=== PATIENT | female | born 1945 | race Caucasian/White ===

== ENCOUNTER → 2024-04-29 07:27 | Outpatient (REF) | payer MEDICARE, SELFPAY | LOC: HWRAD 07:27 | PROVIDERS: ATTENDING PHYSICIAN Orthopaedic Surgery Hand Surgery; FAMILY PHYSICIAN Internal Medicine | DX: M25.511 Pain in right shoulder (principal) | CPT/HCPCS: 73200 ==

== ENCOUNTER → 2024-06-02 08:53 | Outpatient (REF) | payer MEDICARE, SELFPAY | LOC: WDC 08:53 | PROVIDERS: ATTENDING PHYSICIAN Obstetrics & Gynecology; FAMILY PHYSICIAN Internal Medicine | DX: Z12.31 Encounter for screening mammogram for malignant neoplasm of breast (principal) | CPT/HCPCS: 77063; 77067 ==

== ENCOUNTER → 2024-06-03 09:40 | Outpatient (REF) | payer MEDICARE, SELFPAY | LOC: RAD 09:40 | PROVIDERS: ATTENDING PHYSICIAN Internal Medicine | DX: Z78.0 Asymptomatic menopausal state (principal) | CPT/HCPCS: 77080 ==

== ENCOUNTER 2024-06-09 14:48 | Emergency (ER) | payer MEDICARE, SELFPAY ==
[2024-06-09 14:50] VITALS: BP 175/111
[2024-06-09] MEDS: MOTRIN 400 MG PO (16:48)
[2024-06-09] MEDS: LIDOCAINE 4% PATCH 1 PATCH TOPICAL (16:49)
--- NOTE | 2024-06-09 17:15 | ED.GENMED ---
History of Present Illness
<Lovely Grover PA-C - Last Filed: 06/11/24 22:12>
General
Chief Complaint: Musculo-Skeletal Complaint
Source: patient
Exam Limitations: none
Time Seen by Provider: 06/09/24 16:30
Nursing documentation reviewed up to this point in time: agreed with
History of Present Illness
History of Present Illness:
Patient is a 78-year-old female with history hyperlipidemia presenting for evaluation of left rib pain. Patient states that this started about 4 days ago she was reaching over into the washing machine to grab a pair of socks. She felt a sharp pain
in her left lateral ribs. Pain is dissipated somewhat since the initial injury although persist. Patient reports a pain in her left lateral chest definitely worse with certain movements. Patient states pain is worse when she goes to get out of bed
in the morning. Patient denies any exertional or pleuritic component to pain. Patient has not noticed any bruising. Patient specifically denies any chest pain, shortness of breath, difficulty breathing, abdominal pain. Patient denies any
headache, nausea/vomiting, urinary symptoms. Patient denies any fever, chills, cough.
Patient is a taking Tylenol and icing at home with little improvement.
Review of Systems
<Lovely Grover PA-C - Last Filed: 06/11/24 22:12>
Review of Systems
Allergies reviewed?: Yes
All Other Systems: ROS reviewed and negative except as documented in HPI and ROS
Phy Exam
<Lovely Grover PA-C - Last Filed: 06/11/24 22:12>
Physical Exam
Physical Exam:
Vitals: Patient's vital signs are stable. Afebrile
General: Patient is well appearing, no acute distress. Nontoxic-appearing
Skin: Warm and dry, no rashes or lesions
Head: Normocephalic, atraumatic
Eyes: Sclera nonicteric. EOMs intact. No nystagmus.
Throat: Protecting airway
Neck: Normal ROM, no cervical spine tenderness, no meningismus. Trachea midline
Cardiac: Regular rate and rhythm, no murmurs. Point tenderness to left lateral chest wall just beneath left breast. No overlying erythema, ecchymoses, or rash. No crepitus or obvious deformity.
Pulm: Clear breath sounds bilaterally. Normal respiratory effort. No respiratory distress. Oxygen saturation 95 on room air.
Abdomen: Abdomen soft. No abdominal tenderness.
Extremities: No evidence of cyanosis or edema. Great distal pulse
Neuro: AAOx3. CN II-XII intact. No focal neurologic deficits. Strength 5 out of 5 in upper and lower extremities. Steady gait. Speech fluid. Sensation fully intact
Psychiatric: Normal affect.
Course
<Lovely Grover PA-C - Last Filed: 06/11/24 22:12>
Orders/Labs/Results
Orders:
Orders
06/09/24 16:45
Ibuprofen [Motrin] 400 mg PO NOW STA
Lidocaine [Lidocaine 4% Patch] 1 patch TOPICAL NOW STA
Apply Lidocaine patch(s) to:: Left lateral ribs
Ribs, Left 3 View W/PA Chest CR [CR Ribs-left 3 Vw W/pa Chest] Urgent
Comment:
Reason For Exam: left lateral rib pain
06/09/24 17:15
Electrocardiogram (*1) Urgent
Reason for Study: Chest Pain
EKG- Treatment ONCE
Vital Signs
Blood pressure: 165/105
Initial and Last Documented VS:
Initial Vital Signs
Temp Pulse Resp BP Pulse Ox
98.0 F 90 18 175/111 95
06/09/24 14:50 06/09/24 14:50 06/09/24 14:50 06/09/24 14:50 06/09/24 14:50
Last Documented Vital Signs
Temp Pulse Resp BP Pulse Ox
98.0 F 90 18 165/105 95
06/09/24 14:50 06/09/24 14:50 06/09/24 14:50 06/09/24 18:23 06/09/24 14:50
<Maria G Luther DO - Last Filed: 06/16/24 14:13>
Orders/Labs/Results
Orders:
Orders
06/09/24 16:45
Ibuprofen [Motrin] 400 mg PO NOW STA
Lidocaine [Lidocaine 4% Patch] 1 patch TOPICAL NOW STA
Apply Lidocaine patch(s) to:: Left lateral ribs
Ribs, Left 3 View W/PA Chest CR [CR Ribs-left 3 Vw W/pa Chest] Urgent
Comment:
Reason For Exam: left lateral rib pain
06/09/24 17:15
Electrocardiogram (*1) Urgent
Reason for Study: Chest Pain
EKG- Treatment ONCE
Vital Signs
Initial and Last Documented VS:
Initial Vital Signs
Temp Pulse Resp BP Pulse Ox
98.0 F 90 18 175/111 95
06/09/24 14:50 06/09/24 14:50 06/09/24 14:50 06/09/24 14:50 06/09/24 14:50
Last Documented Vital Signs
Temp Pulse Resp BP Pulse Ox
98.0 F 90 18 165/105 95
06/09/24 14:50 06/09/24 14:50 06/09/24 14:50 06/09/24 18:23 06/09/24 14:50
<Lovely Grover PA-C - Last Filed: 06/11/24 22:12>
MDM/Problems Addressed
Differential Diagnosis Includes:
Not limited to: Intercostal muscle strain, costochondritis, rib contusion, rib fracture, pneumothorax
MDM/Problems Addressed:
78-year-old female presenting with left rib pain for the past four days. Occurred after leaning into the washing machine. No associated chest pain, shortness of breath, fevers, chills, or cough. Vital stable. Physical exam as above. Patient is well
appearing. Heart regular rate and rhythm. Lungs clear bilaterally. No respiratory distress. There is point tenderness or left lower ribs without any overlying ecchymosis or erythema. Obtained rib x-ray which showed no fracture or pneumothorax. EKG
with no acute ischemic changes. Patient was treated with Motrin and lidocaine patch in emergency department with some improvement. Suspect likely intercostal muscle strain. Patient will be discharged with incentive spirometer. Recommend
Tylenol/Motrin/lidocaine patch as needed. Patient will follow up primary care provider.
Patient was made aware of her high blood pressure. She said that it is never high while she is at her primary care office, but assured me that she will follow up for blood pressure recheck shortly. Return precautions discussed at length. Patient
expressed understanding.
Chronic conditions affecting care:
N/A
Acute Exacerbation and/or Progression of Chronic Illness:
N/A
<Lovely Grover PA-C - Last Filed: 06/11/24 22:12>
*Radiology
Radiology exam reviewed: preliminary read by ED provider (No acute fracture) and radiology read reviewed
*Pulse Oximetry
Patient hypoxic: no
*EKG
Interpreted by ED Provider?: Yes
EKG Intrepretation Date: 06/09/24
Interpretation: normal
Comparison EKG: no comparison EKG present
Heart Rate: 83
Rate: normal
Rhythm: sinus
Ischemia: no ischemia
*Plastic Injection Mold Maker Interpretation
Rate: Plastic Injection Mold Maker- N/A
*Critical Care Note
Total Time (30-74mins, 75-104mins- exclusive of procedures): Not Applicable
ED Attending Note
<Lovely Grover PA-C - Last Filed: 06/11/24 22:12>
-
Portions of this chart may have been created with voice recognition software.� Occasional wrong word or��sound alike� substitutions may have occurred due to the inherent limitations of voice recognition software.
<Maria G Luther, DO - Last Filed: 06/16/24 14:13>
ED Attending Note
Patient seen and examined by attending physician: Yes
I performed a history and physical exam of patient and discussed management with resident, I reviewed resident's note and agree with documented findings and plan of care.: Yes
ED Attending Note:
78-year-old female presenting with left lower rib pain for the past 4 days. Patient states that 4 days ago she was leaning into a automatic washer mechanic and noticed left lower rib pain afterwards. Patient denies any chest pain, shortness of breath, fever,
chills or cough. Patient states that pain is worse with walking around. Heart regular rate rhythm, lungs clear, abdomen soft nondistended nontender. Point tenderness left lower ribs. X-ray reviewed, no pneumothorax, no acute rib fracture.
Discussed results with patient at bedside. Recommended Tylenol/Motrin as needed for pain, lidocaine patch, patient given incentive spirometer. Suspect intercostal muscle injury
Discharge Plan
Departure
Patient Disposition: Home (Routine Discharge)
Date of Disposition: 06/09/24
Time of Disposition: 18:06
Patient with high blood pressure during this ER visit?: Yes
Condition: Good
Covid-19: Not Applicable
Discharge Problem:
Intercostal muscle strain
Instructions: Costochondritis, BLOOD PRESSURE
Referrals:
John Conklin I., DO [Family Provider] - Follow up in 5-7 days
Activity Restrictions/Additional Instructions:
RETURN TO THE EMERGENCY DEPARTMENT WITH ANY CHEST PAIN, SHORTNESS OF BREATH, FEVERS, PRODUCTIVE COUGH, INTRACTABLE PAIN, WORSENING IN CURRENT SYMPTOMS, OR ANY OTHER CONCERNS
-As discussed that the initial read of your x-ray showed no acute fracture or dislocation. We will call you if there are any discrepancies once the radiologist reads the x-ray.
-You should use the incentive spirometer a few times an hour throughout the day to work on lung expansion and prevent further complications
-You can use lidocaine patches at home. You can take Tylenol and/or Motrin as needed. Apply ice and heat as needed.
-Follow-up with your primary care provider for further evaluation/management.
Interventions
Interventions:
*Risk Screen - Suicide Last Done: 06/09/24 15:34
*General Assessment Last Done: 06/09/24 15:34
*Neglect/Abuse Screening Last Done: 06/09/24 15:34
ED- Fall Risk Assessment Last Done: 06/09/24 18:21
*ED COVID-19 Vaccine History Last Done: 06/09/24 15:34
*Nursing Disposition Last Done: 06/09/24 18:21
ED-Musculoskeletal Assessment Last Done: 06/09/24 15:35
Discharge Date and Time
Discharge Date/Time: 06/09/24 18:21
Print Language: PORTUGUESE
== END 2024-06-09 18:21 | disposition home or self-care (01) ==
LOC: EMR 14:48
PROVIDERS: EMERGENCY PHYSICIAN Emergency Medicine; FAMILY PHYSICIAN Internal Medicine
DX: S29.011A Strain of muscle and tendon of front wall of thorax, initial encounter (principal); X58.XXXA Exposure to other specified factors, initial encounter; R03.0 Elevated blood-pressure reading, without diagnosis of hypertension; E78.5 Hyperlipidemia, unspecified; K21.9 Gastro-esophageal reflux disease without esophagitis
CPT/HCPCS: 99283; 71101; 93005